=== PATIENT | male | born 1980 ===

== ENCOUNTER 2022-05-28 15:06 | Emergency (ER) | payer SELFPAY ==
[~2022-05-28] VITALS: Ht 175.3 cm; Wt 80.0 kg
[2022-05-28 15:56] LABS: Basophils # (auto) 0 10 ^3/uL (0-0.2); Eosinophils # (auto) 0.1 10 ^3/uL (0-0.8); Hemoglobin 11.3 g/dL (13.5-17.5); Lymphocytes # (auto) 0.6 10 ^3/uL (0.4-5.4); Monocytes # (auto) 0.4 10 ^3/uL (0-1.3); Neutrophils # (auto) 6.4 10 ^3/uL (1.6-8.6); Neutrophils % (auto) 84.4 % (37.0-80.0); Nucleated Red Blood Cells % 0.2 %; White Blood Cell 7.6 10^3/uL (4.4-10.8)
[2022-05-28 15:58] LABS: Basophils % (auto) 0.6 % (0.0-2.0); Eosinophils % (auto) 0.8 % (0.0-7.0); Hematocrit 36.1 % (41.0-53.0); Lymphocytes % (auto) 8.4 % (10.0-50.0); Mean Corpuscular Hemoglobin 21.6 pg (28.0-32.0); Mean Corpuscular Hgb Conc. 31.4 g/dL (32.0-36.0); Mean Corpuscular Volume 68.7 fL (80.0-100.0); Monocytes % (auto) 5.8 % (0.0-12.0); Red Blood Cells 5.26 10^6/uL (4.5-5.90); Red Cell Distribution Width 14.8 % (11.8-14.3)
[2022-05-28 16:16] LABS: Alanine Aminotransferase 125 U/L (16-61); Albumin 3.7 g/dL (3.4-5.0); Anion Gap 13 (5-15); Aspartate Aminotransferase 59 U/L (15-37); BUN/Creatinine Ratio 12.5; Blood Urea Nitrogen 10 mg/dL (7-18); Calcium 7.8 mg/dL (8.5-10.1); Carbon Dioxide 20 mmol/L (21-32); Chloride 109 mmol/L (98-107); GFR African American 136 mL/min; GFR Non-African American 113 mL/min; Glucose 114 mg/dL (74-106); Potassium 3.5 mmol/L (3.5-5.1); Sodium 142 mmol/L (136-145)
[2022-05-28 16:18] LABS: Alkaline Phosphatase 93 U/L (45-117); Bilirubin, Total 0.7 mg/dL (0.2-1.0)
[2022-05-28] MEDS ORDERED: IBUPROFEN 600 MG TAB PO ONE (23:30)
[2022-05-28 23:42] VITALS: BP 140/74
== END 2022-05-28 23:42 | disposition home or self-care (01) ==
LOC: ER 15:06 → EDBD 15:06 → ER 23:42
DX: R07.89 Other chest pain (principal)
CPT/HCPCS: 36415; 71045; 80053; 84484; 85025; 93005

== ENCOUNTER 2024-10-23 01:47 | Emergency (ER) | payer MEDICAID, OTHER ==
[~2024-10-23] VITALS: Ht 165.1 cm; Wt 78.2 kg
[2024-10-23 03:13] VITALS: BP 126/76; PULSE 79; RESP 19; TEMP 98.9; O2SAT 98
[2024-10-23] MEDS: HYDROcodone-ACET 5/325MG TAB PO ONE (03:21)
[2024-10-23] MEDS: cefTRIAXone SOD 1,000 MG VL IM ONE (03:21)
[2024-10-23] MEDS: LIDOCAINE 1% HCL (LOCAL ANESTH.) INJ 20ML MDV ONE (03:27)
--- NOTE | 2024-10-23 03:40 | ED.PDOC ---
History of Present Illness(SKN HPI Comments This is 44-year-old male patient presents to the ED chief complaint wound check. Patient states yesterday he was opening up a can with a knife on his right thigh missed can and stabbed his right thigh he is complaining of moderate pain and discomfort and swelling to the area 8/10 on pain scale nonradiating type pain pressure type pain. He has fevers chills nausea vomiting diarrhea. Chief Complaint: Wound Check Time Seen by MD: 01:51 History of Present Illness: Nurses Notes, Medications, Allergies Allergies: Coded Allergies: NO KNOWN ALLERGIES (Unverified , 05/28/22) Home Meds Active Scripts Ibuprofen (Ibuprofen) 800 Mg Tab, 1 TAB PO TID PRN for 5 Days, #15 TAB Prov:ANNA LANDIS [employer] 10/23/24 Amoxicillin & Pot Clavulanate (AUGMENTIN TABLET) 875 Mg Tb, 875 MG PO BID for 10 Days, #20 TAB Prov:ANNA LANDIS [facility] 10/23/24 Information Source: Patient Mode of Arrival: Ambulatory Past Medical History PAST MEDICAL HISTORY: Denies Surgical History: Denies all surgeries Family History Family History: Reviewed,noncontributory to illness Social History Smoker: Non-Smoker Alcohol: Denies ETOH Use Drugs: Denies Drug Use Lives In: Home Constitutional: denies: chills, diaphoresis, fatigue, fever, malaise, sweats, weakness, others EENTM: denies: blurred vision, double vision, ear bleeding, ear discharge, ear drainage, ear pain, ear ringing, eye pain, eye redness, hearing loss, mouth pain, mouth swelling, nasal discharge, nose bleeding, nose congestion, nose pain, photophobia, tearing, throat pain, throat swelling, voice changes, others Respiratory: denies: cough, hemoptysis, orthopnea, SOB at rest, shortness of breath, SOB with excertion, stridor, wheezing, others Cardiovascular: denies: chest pain, dizzy spells, diaphoresis, Dyspnea on exertion, edema, irregular heart beat, left arm pain, lightheadedness, palpitations, PND, syncope, others Gastrointestinal: denies: abdomen distended, abdominal pain, blood streaked bowels, constipated, diarrhea, dysphagia, difficulty swallowing, hematemesis, melena, nausea, poor appetite, poor fluid intake, rectal bleeding, rectal pain, vomiting, others Genitourinary: denies: burning, dysuria, flank pain, frequency, hematuria, incontinence, penile discharge, penile sore, pain, testicle pain, testicle swelling, urgency, others Neurological: denies: dizziness, fainting, headache, left sided numbness, left sided weakness, numbness, paresthesia, pre-existing deficit, right sided numbness, right sided weakness, seizure, speech problems, tingling, tremors, weakness, others Musculoskeletal: denies: back pain, gout, joint pain, joint swelling, muscle pain, muscle stiffness, neck pain, others Integumetry: reports: laceration (Right thigh); denies: bruises, change in color, change in hair/nails, dryness, lesions, lumps, rash, wounds, others Allergic/Immunocompromised: denies: Difficulty Healing, Frequent Infections, Hives, Itching, others Hematologic/Lymphatic: denies: anemia, blood clots, easy bleeding, easy bruising, swollen glands, others Endocrine: denies: excessive hunger, excessive sweating, excessive thirst, excessive urination, flushing, intolerance to cold, intolerance to heat, unexplained weight gain, unexplained weight loss, others Psychiatric: denies: anxiety, bipolar disorder, depression, hopeless, panic disorder, schizophrenia, sleepless, suicidal, others Physical Exam General Appearance: No Apparent Distress, Normal HEENT: Pharynx Normal Neck: Full Range of Motion, Non-Tender Respiratory: Lungs Clear, No Respiratory Distress, Normal Breath Sounds Cardiovascular: No Murmur, Normal Peripheral Pulses, Regular Rate/Rhythm Breast Exam: Deferred Gastrointestinal: Non Tender, Soft Genitalia: Deferred Pelvic: Deferred Rectal: Deferred Extremities: Normal capillary refill, Normal inspection, Normal range of motion, Non-tender, No pedal edema Musculoskeletal : Apperance: Normal Neurologic: Alert, auto machinist II-XII nml as Tested, No Motor Deficits, Normal Affect, Normal Mood, No Sensory Deficits Cerebellar Function: Normal Reflexes: Normal Skin: Dry, Lacerations (0.5 cm laceration to right distal anterior thigh no known bleeding no noted erythema moderate tenderness to touch trace edema. Drainage.), Normal Color, Warm Lymphatic: No Adenopathy Was a procedure done? Was a procedure done?: Yes Sedation Sedation?: No Informed consent obtained: Yes Laceration Repair : Location Right proximal anterior thigh Length 1.5 cm Anesthetic: Lidocaine, Without epi Laceration Repair Prep: Saline, Betadine Laceration Repair Wound Comple: epidermis/dermis repair Laceration Repair: Number of sutures (3 loose sutures encourage drainage old laceration infection), Simple, Non-adherent gauze, Gauze Differential Diagnosis (INTG) Differential Diagnosis: Cellulitis, Laceration X-Ray, Labs, Meds, VS Vital Signs Date Time Temp Pulse Resp B/P (MAP) Pulse Ox O2 Delivery O2 Flow Rate FiO2 10/23/24 03:13 98.9 79 19 126/76 (93) 98 98.9 10/23/24 03:13 79 19 98 Room Air 10/23/24 01:51 98.9 81 20 114/81 (92) 98 Current Medications Medications (Trade) Dose Ordered Sig/Sonya Route Start Time Stop Time Status Last Admin Ceftriaxone Sodium (Rocephin) 1,000 mg ONCE ONCE IM 10/23/24 02:45 10/23/24 02:46 DC 10/23/24 03:21 Acetaminophen/ Hydrocodone Bitart ([place] 5/325MG Tab) 2 tab ONCE ONCE PO 10/23/24 02:45 10/23/24 02:46 DC 10/23/24 03:21 Diphtheria/ Tetanus/Acell Pertussis (Boostrix T-Dap) 0.5 ml ONCE ONCE IM 10/23/24 03:45 10/23/24 03:46 DC 10/23/24 03:55 X-Ray, Labs, Meds, VS Comment Loose sutured to allow drainage due to infection. Patient given Rocephin 1 g IM. Patient on Augmentin 1 tablet twice daily times 10 days. Follow up with PCP in 24-48 hours for wound re-evaluation ER return precautions given patient can take ibuprofen 800 mg as prescribed t.i.d. for the pain swelling advised to rest increase p.o. fluids note provided for work patient agrees with discharge plan of care. Patient tetanus updated Patient given [place] 10 mg for the pain. Reports improvement requesting discharge Time of 1ST Reevaluation: 03:42 Reevaluation 1ST: Improved Patient Education/Counseling: Diagnosis, Treatment, Prognosis, Need For Follow Up Family Education/Counseling: Diagnosis, Treatment, Prognosis, Need For Follow Up Departure 1 Departure Time of Disposition: 03:42 Impression: Primary Impression: Laceration of thigh, right Qualified Codes: S71.111A - Laceration without foreign body, right thigh, initial encounter Disposition: HOME / SELF CARE / HOMELESS Condition: Stable e-Prescriptions Ibuprofen (Ibuprofen) 800 Mg Tab 1 TAB PO TID PRN for 5 Days, #15 TAB Prov: ANNA LANDIS 10/23/24 Amoxicillin & Pot Clavulanate (AUGMENTIN TABLET) 875 Mg Tb 875 MG PO BID for 10 Days, #20 TAB Prov: ANNA LANDIS 10/23/24 Discharged With: Spouse Critical Care Note Critical Care Time?: No Stability Stability form required: No ANNA LANDIS Oct 23, 2024 03:40
[2024-10-23] MEDS ORDERED: AUG875T PO (03:45)
[2024-10-23] MEDS ORDERED: IBUP-1456 PO (03:45)
[2024-10-23] MEDS: TETANUS-DIPTH-ACEL PERTUSSIS 0.5ML SYR Tdap IM ONE (03:55)
== END 2024-10-23 04:00 | disposition home or self-care (01) ==
LOC: ER 01:47
DX: S71.111A Laceration without foreign body, right thigh, initial encounter (principal); Z79.899 Other long term (current) drug therapy; W26.0XXA Contact with knife, initial encounter; Y93.89 Activity, other specified; Y92.89 Other specified places as the place of occurrence of the external cause; Y99.8 Other external cause status
CPT/HCPCS: 12001; 90471; 90715; 96372; 99284; J0696; J2003